=== PATIENT | female | born 1935 | race Caucasian/White ===

== ENCOUNTER 2018-07-23 16:08 | Inpatient (IN) | payer MEDICARE, BC ==
[~2018-07-23] VITALS: Ht 162.6 cm; Wt 76.2 kg
--- NOTE | 2018-07-23 16:10 | NUR ---
83-year-old Female brought in by son from home who presents to the ED for evaluation of a sudden onset of dizziness, and photophobia with moderate, sharp eye pain. Patient is alert and oriented x2-3, breathing even and unlabored with no distress noted. skin warm to touch and intact. awaiting for patient to be seen by MD. Will conitnue to monitor.
--- NOTE | 2018-07-23 16:25 | NUR ---
technical administrator at bedside to take patient for CT
[2018-07-23] MEDS ORDERED: IV NS 0.9% 1,000 ML BAG IV ONE (16:30)
[2018-07-23] MEDS ORDERED: MECLIZINE HCL 12.5 MG TABLET PO ONE (16:30)
[2018-07-23 16:41] LABS: BASOPHILS % (AUTO) 0.4 % (0.0-2.0); EOSINOPHILS % (AUTO) 0.9 % (0.0-6.0); HEMATOCRIT 36 % (33-45); HEMOGLOBIN 12.2 g/dL (11.5-14.8); LYMPHOCYTES # (AUTO) 1.2 /CMM (0.8-4.8); LYMPHOCYTES % (AUTO) 18.6 % (20.0-44.0); MEAN CORPUSCULAR HEMOGLOBIN 28 PG (26.0-33.0); MEAN CORPUSCULAR HGB CONC 34 g/dl (31.0-36.0); MEAN CORPUSCULAR VOLUME 84 fL (82-100); MONOCYTES # (AUTO) 0.3 /CMM (0.1-1.30); MONOCYTES % (AUTO) 5.3 % (2.0-12.0); NEUTROPHILS # (AUTO) 4.8 /CMM (1.8-8.9); NEUTROPHILS % (AUTO) 74.8 % (43.0-81.0); PLATELET COUNT (AUTO) 147 /CMM (150-450); RDW COEFFICIENT OF VARIATION 13.8 (11.5-15.0); RED BLOOD CELL COUNT(AUTO) 4.29 MIL/uL (4.0-5.2); WHITE BLOOD COUNT (AUTO) 6.4 K/uL (4.3-11.0)
[2018-07-23 16:53] LABS: CALCIUM, SERUM 8.4 mg/dL (8.5-10.1); CARBON DIOXIDE 28 mmol/L (21-32); CHLORIDE 105 mmol/L (98-107); CREATININE 0.9 mg/dL (0.6-1.3); GLUCOSE 123 mg/dL (74-106); POTASSIUM 3.8 mmol/L (3.5-5.1); SODIUM SERUM 140 mmol/L (136-145); UREA NITROGEN, BLOOD 20 mg/dL (7-18)
[2018-07-23 17:03] LABS: TROPONIN I < 0.017 ng/mL (0.00-0.056)
[2018-07-23] MEDS ORDERED: MECLIZINE HCL 25 MG TABLET ONE (17:04)
--- NOTE | 2018-07-23 18:14 | NUR ---
TELE NEUROLOGY CALLED PER DR COPELAND'S REQUEST FOR A CONSULT WITHOUT CALLING A CODE STROKE.
--- NOTE | 2018-07-23 18:17 | NUR ---
CALL BACK FROM DR LITTLE,TELE NEUROLOGY,SPOKE WITH DR COPELAND.
[2018-07-23] MEDS ORDERED: CT SWABBABLE VALVE TRANS SET 1 EA INFUS.SET MC ONE (18:20)
[2018-07-23] MEDS ORDERED: IOHEXOL-350 100 ML VIAL IV ONE (18:20)
[2018-07-23] MEDS ORDERED: IV NS 0.9% 250 ML IV ONE (18:20)
[2018-07-23] MEDS ORDERED: METOCLOPRAMIDE HCL 10 MG/2 ML VIAL IV ONE (18:30)
[2018-07-23] MEDS ORDERED: METOCLOPRAMIDE HCL 10 MG/2 ML VIAL ONE (18:34)
[2018-07-23] MEDS ORDERED: ASPI-1169 PO (19:04)
[2018-07-23 19:11] LABS: APPEARANCE,URINE Clear (CLEAR); BILIRUBIN,URINE Negative (NEGATIVE); BLOOD, URINE Negative Ery/uL (NEGATIVE); COLOR,URINE Yellow (YELLOW); KETONES,URINE Trace (NEGATIVE); LEUKOCYTE ESTERASE ,URINE Negative (NEGATIVE); NITRITE, URINE Negative (NEGATIVE); PH,URINE 7.5 (5.0-8.0); PROTEIN,URINE Negative (NEGATIVE); UGLUCOSE Negative (NEGATIVE); UROBILINOGEN,URINE 0.2 EU/dL (0.2)
[2018-07-23 19:31] LABS: BACTERIA,URINE Rare /HPF (None Seen); RBC,URINE NONE SEEN /HPF (0-2); SQUAMOUS EPITHELIAL CELL,UR Few /HPF (None Seen); WBC,URINE NONE SEEN /HPF (0-3)
--- NOTE | 2018-07-23 19:42 | NUR ---
RECEIVED REPORT FROM CHRISTY BARBA FOR YANET.
--- NOTE | 2018-07-23 19:46 | NUR ---
CALLED NURSING FIELD APPRAISER AND REQUESTED A TELE BED FOR THIS PT.
[2018-07-23 20:00] VITALS: BP 157/78
--- NOTE | 2018-07-23 20:27 | NUR ---
REPORT GIVEN TO CHRISTY FORD FOR YANET.
--- NOTE | 2018-07-23 21:05 | NUR ---
RN NOTES RECEIVED PATIENT REPORT FROM ER NURSE JONATHAN. [facility] 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 PATIENT COMPLAIN OF DIZZINESS BUT DOESN'T COMPLAIN OF PAIN AND NO SOB AT THIS TIME, ON RA WITH SPO2 OF 98%, BREATHING DAPHNIE AND UNLABORED. ALL SAFETY MEASURES ARE IMPLEMENTED, BED IN LOW, LOCKED POSITION, CALL LIGHT IN REACH. WILL CONTINUE TO MONITOR.
[2018-07-23 21:43] VITALS: BP 157/78
[2018-07-23] MEDS ORDERED: IV NS 0.9% 1,000 ML IV PRN (21:49)
[2018-07-23] MEDS ORDERED: ACETAMINOPHEN 325 MG TABLET PO PRN (22:00)
[2018-07-23] MEDS ORDERED: MAG HYDROX/AL HYDROX/SIMETH 30 ML UDC PO PRN (22:00)
[2018-07-23] MEDS ORDERED: HYDROCODONE/APAP 10/325MG 1 EA TABLET PO PRN (22:00)
[2018-07-23] MEDS ORDERED: TEMAZEPAM 15 MG CAPSULE PO PRN (22:00)
[2018-07-23] MEDS ORDERED: MAGNESIUM HYDROXIDE 30 ML UDC PO PRN (22:00)
[2018-07-23] MEDS ORDERED: HYDROCODONE/APAP 5/325MG 1 EACH TABLET PO PRN (22:00)
[2018-07-23] MEDS ORDERED: ONDANSETRON HCL/PF 4 MG/2 ML VIAL IVP PRN (22:00)
[2018-07-23] MEDS ORDERED: MECLIZINE HCL 12.5 MG TABLET PO PRN (22:30)
[2018-07-24] VITALS (7 sets, daily range): BP systolic 119–175; BP diastolic 60–91
[2018-07-24 06:52] LABS: CHOLESTEROL 221 mg/dL (<200); HDL CHOLESTEROL 74 mg/dL (40-60); LDL 133 mg/dL (0-99); THYROID STIMULATING HORMONE 1.498 uIU/mL (0.358-3.74); TRIGLYCERIDES 54 mg/dL (30-150)
[2018-07-24 07:01] LABS: CALCIUM, SERUM 8.3 mg/dL (8.5-10.1); CARBON DIOXIDE 25 mmol/L (21-32); CHLORIDE 106 mmol/L (98-107); CREATININE 0.7 mg/dL (0.6-1.3); GLUCOSE 114 mg/dL (74-106); MAGNESIUM 1.9 mg/dL (1.8-2.4); PHOSPHORUS 3.5 mg/dL (2.5-4.9); POTASSIUM 3.7 mmol/L (3.5-5.1); SODIUM SERUM 141 mmol/L (136-145); UREA NITROGEN, BLOOD 13 mg/dL (7-18)
--- NOTE | 2018-07-24 08:09 | NUR ---
WOUND CARE CONSULT: PT PRESENTS WITH DRY SCAB TO RT MEDIAL FOOT BELOW ANKLE, PRESENT ON ADMISSION. PT STATES WAS GARDENING AND DEVELOPED A BLISTER ON HER FOOT WHICH IS NOW HEALING. SMALLER SCAB FELL OFF DURING EXAM. NO DRAINAGE, REDNESS OR TENDERNESS NOTED. PT IS INCONTINENT. RECOMMENDATIONS MADE FOR SKIN PROTECTION AND CARE. DISCUSSED WITH NURSING STAFF. PT ABLE TO TURN AND REPOSITION HERSELF IN BED. CURRENT NOE SCORE IS 20. WILL SEE PRN. CHEN IN AGREEMENT WITH PLAN OF CARE. Addendum: 07/24/18 at 0811 by BIANKA KHAN WNDNU Amended: Links added.
[2018-07-24] MEDS ORDERED: Z GUARD REMEDY 2 OZ OINT TP PRN (08:30)
--- NOTE | 2018-07-24 08:30 | NUR ---
spoke to dr. loco in am regarding bp med ordered.
[2018-07-24] MEDS: PANTOPRAZOLE 40 MG TABLET.DR PO SCH (09:03)
[2018-07-24] MEDS: Z GUARD REMEDY 2 OZ OINT TP SCH (09:03)
[2018-07-24] MEDS ORDERED: CLONIDINE HCL 0.1 MG TABLET PO PRN (10:30)
--- NOTE | 2018-07-24 11:00 | NUR ---
dr. banks in and dc'd bp prn order.
[2018-07-24] MEDS: ASPIRIN EC 325 MG TABLET.DR PO SCH (12:18)
[2018-07-24] MEDS ORDERED: TEMAZEPAM 7.5 MG CAPSULE PO PRN (14:00)
[2018-07-24 14:05] LABS: BASOPHILS % (AUTO) 0.1 % (0.0-2.0); EOSINOPHILS % (AUTO) 0.6 % (0.0-6.0); HEMATOCRIT 41 % (33-45); HEMOGLOBIN 12.9 g/dL (11.5-14.8); LYMPHOCYTES # (AUTO) 1.2 /CMM (0.8-4.8); LYMPHOCYTES % (AUTO) 15.4 % (20.0-44.0); MEAN CORPUSCULAR HEMOGLOBIN 28 PG (26.0-33.0); MEAN CORPUSCULAR HGB CONC 31 g/dl (31.0-36.0); MEAN CORPUSCULAR VOLUME 88 fL (82-100); MONOCYTES # (AUTO) 0.5 /CMM (0.1-1.30); NEUTROPHILS # (AUTO) 6.2 /CMM (1.8-8.9); NEUTROPHILS % (AUTO) 77.9 % (43.0-81.0); PLATELET COUNT (AUTO) 150 /CMM (150-450); RDW COEFFICIENT OF VARIATION 14.3 (11.5-15.0); RED BLOOD CELL COUNT(AUTO) 4.68 MIL/uL (4.0-5.2)
[2018-07-24] MEDS ORDERED: hydrALAZINE HCL IV 20 MG VIAL IV ONE (16:30)
[2018-07-24] MEDS: CLONIDINE HCL 0.1 MG TABLET PO PRN (16:32)
--- NOTE | 2018-07-24 17:30 | NUR ---
call out to dr. eller again and got bp med ordered as bp elevated. automobile tire builder spoke to pt,s son.
--- NOTE | 2018-07-24 18:00 | NUR ---
MED X1 FOR GENERAL DISCOMFORT,X1 WITH CLONODINE FOR BP.HAD MRI OF HEAD TODAY,TOLERATED WELL.PT. ATTEMPTS TO BE INDEPENDENT,INSTRUCTED NOT TO GET OOB WITHOUT HELP.
--- NOTE | 2018-07-24 20:00 | NUR ---
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 PATIENT COMPLAINS A LITTLE BIT OF DIZZINESS BUT DOESN'T COMPLAIN OF PAIN AND NO SOB AT THIS TIME, ON RA WITH SPO2 OF 98%, BREATHING DAPHNIE AND UNLABORED. ALL SAFETY MEASURES ARE IMPLEMENTED, BED IN LOW, LOCKED POSITION, CALL LIGHT IN REACH. WILL CONTINUE TO MONITOR.
[2018-07-24] MEDS ORDERED: ATORVASTATIN 40 MG TABLET PO SCH (22:00)
[2018-07-25] VITALS: BP 169/86
[2018-07-25] MEDS: CLONIDINE HCL 0.1 MG TABLET PO PRN (02:49)
[2018-07-25 04:00] VITALS: BP 121/60
[2018-07-25 06:56] LABS: CALCIUM, SERUM 8.6 mg/dL (8.5-10.1); CARBON DIOXIDE 26 mmol/L (21-32); CHLORIDE 109 mmol/L (98-107); CREATININE 0.7 mg/dL (0.6-1.3); GLUCOSE 97 mg/dL (74-106); POTASSIUM 3.8 mmol/L (3.5-5.1); SODIUM SERUM 143 mmol/L (136-145); UREA NITROGEN, BLOOD 10 mg/dL (7-18)
--- NOTE | 2018-07-25 07:30 | NUR ---
SUBSTATION SUPERINTENDENT INITIAL NOTES RECEIVED PATIENT RESTING IN BED, AOX3, ROOM AIR, AMBULATORY, R AC 18G, NS @ 75 ML/HR, NO CO OF PAIN, STATES SHE WOULD LIKE TO BE DISCHARGED TODAY, BED IN LOW AND LOCKED POSITION, CALL LIGHT WITHIN REACH, WILL CONTINUE TO MONITOR .
[2018-07-25 07:46] LABS: BASOPHILS % (AUTO) 0.1 % (0.0-2.0); EOSINOPHILS % (AUTO) 2.5 % (0.0-6.0); HEMATOCRIT 43 % (33-45); LYMPHOCYTES # (AUTO) 1.8 /CMM (0.8-4.8); LYMPHOCYTES % (AUTO) 18.9 % (20.0-44.0); MEAN CORPUSCULAR HEMOGLOBIN 28 PG (26.0-33.0); MEAN CORPUSCULAR HGB CONC 32 g/dl (31.0-36.0); MEAN CORPUSCULAR VOLUME 88 fL (82-100); MONOCYTES # (AUTO) 0.4 /CMM (0.1-1.30); MONOCYTES % (AUTO) 3.6 % (2.0-12.0); NEUTROPHILS # (AUTO) 7.3 /CMM (1.8-8.9); NEUTROPHILS % (AUTO) 74.9 % (43.0-81.0); PLATELET COUNT (AUTO) 150 /CMM (150-450); RDW COEFFICIENT OF VARIATION 14.7 (11.5-15.0); RED BLOOD CELL COUNT(AUTO) 4.94 MIL/uL (4.0-5.2); WHITE BLOOD COUNT (AUTO) 9.8 K/uL (4.3-11.0)
[2018-07-25 08:00] VITALS: BP 134/77
[2018-07-25] MEDS: PANTOPRAZOLE 40 MG TABLET.DR PO SCH (08:54)
[2018-07-25] MEDS: Z GUARD REMEDY 2 OZ OINT TP SCH (08:54)
[2018-07-25] MEDS: ASPIRIN EC 325 MG TABLET.DR PO SCH (08:54)
[2018-07-25] MEDS ORDERED: ATOR40TA PO (10:17)
--- NOTE | 2018-07-25 11:00 | NUR ---
APPLICATION INTEGRATION ARCHITECT NOTES PATIENTS DISCHARGE ORDERS GIVEN BY DR FINE, ALL DISCHARGE PAPERWORK DONE, DISCHARGE TEACHING DONE, TEACHING ABOUT NEW PRESCRIPTION DONE INDICATION AND FREQUENCY EXPLAINED PATIENT AND SON VERBALIZED UNDERSTANDING, BELONGINGS LIST SIGNED, AND PICTURE TAKEN AND PLACED IN CHART, IV DISCONTINUED TIP INTACT. PATIENT TAKEN DOWN TO LOBBY WITH RN AND SON, STABLE. HOME VIA PRIVATE VEHICLE LIVES WITH SON.
== END 2018-07-25 11:10 | disposition home or self-care (01) | DRG 73 ==
LOC: ER 16:15 → TELE1 20:35
PROVIDERS: ADMIT Nurse Practitioner Acute Care; ATTEND Nurse Practitioner Acute Care
DX: G90.8 Other disorders of autonomic nervous system (principal); N17.0 Acute kidney failure with tubular necrosis; E44.0 Moderate protein-calorie malnutrition; Z86.73 Personal history of transient ischemic attack (TIA), and cerebral infarction without residual deficits; H81.10 Benign paroxysmal vertigo, unspecified ear; E66.9 Obesity, unspecified; M62.50 Muscle wasting and atrophy, not elsewhere classified, unspecified site; M19.90 Unspecified osteoarthritis, unspecified site; Z68.28 Body mass index [BMI] 28.0-28.9, adult; R73.9 Hyperglycemia, unspecified; Z96.643 Presence of artificial hip joint, bilateral
CPT/HCPCS: 36415; 70450-TC; 70496-TC; 70498-TC; 70551-TC; 71045-TC; 80048-TC; 80061-TC; 81000-TC; 82962-TC; 83735-TC; 84100-TC; 84443-TC; 84484-TC; 85025-TC; 87081-TC; 93307-TC; A4606; J2765; J7030; J7050; J8597; Q9967; Z7610

== ENCOUNTER 2021-12-05 13:15 | Emergency (ER) | payer MEDICARE, BC ==
[~2021-12-05] VITALS: Ht 160 cm; Wt 76.7 kg
[~2021-12-05 13:15] MED LIST: ASPI-1169 PO; ATOR40TA PO
--- NOTE | 2021-12-05 13:16 | NUR ---
SEEN BY DR TAYLOR
[2021-12-05 13:25] VITALS: BP 150/78
--- NOTE | 2021-12-05 13:25 | NUR ---
TO ER BED 11, BIB FAMILY FOR FACE, L WRIST AND L KNEE PAIN, BRUISING S/P GLF LAST NIGHT, DENIES LOC, JUST SOME DIZZINESS S/P, AAOX3, BREATHING EVEN AND NON LABORED, AWAITING MD PEREZ
--- NOTE | 2021-12-05 15:14 | NUR ---
Patient discharged to home in stable condition. Written and verbal after care instructions given. Patient verbalizes understanding of instruction.
== END 2021-12-05 15:15 | disposition home or self-care (01) ==
LOC: ER 13:22
DX: S62.327A Displaced fracture of shaft of fifth metacarpal bone, left hand, initial encounter for closed fracture (principal); S80.02XA Contusion of left knee, initial encounter; S00.83XA Contusion of other part of head, initial encounter; Z86.73 Personal history of transient ischemic attack (TIA), and cerebral infarction without residual deficits; Z79.82 Long term (current) use of aspirin; W01.198A Fall on same level from slipping, tripping and stumbling with subsequent striking against other object, initial encounter; Y93.89 Activity, other specified; Y92.89 Other specified places as the place of occurrence of the external cause; Y99.8 Other external cause status
CPT/HCPCS: 70450-TC; 73130-TC; 73564-TC